=== PATIENT | male | born 1990 | race Native Hawaiian/Other Pacific Islander ===

== ENCOUNTER 2021-10-17 23:04 | Emergency (ER) | payer OTHER ==
[~2021-10-17] VITALS: Ht 190.5 cm; Wt 92.5 kg
[2021-10-17 23:30] VITALS: BP 129/87; TEMP 98.1
== END 2021-10-18 01:20 | disposition home or self-care (01) ==
LOC: ED 23:04
DX: T78.49XA Other allergy, initial encounter (principal); K02.9 Dental caries, unspecified; X58.XXXA Exposure to other specified factors, initial encounter; Y92.89 Other specified places as the place of occurrence of the external cause
CPT/HCPCS: 99281